=== PATIENT | male | born 1990 | race Caucasian/White ===

== ENCOUNTER 2016-11-24 13:16 | Emergency (ER) | payer SELFPAY ==
[~2016-11-24] VITALS: Ht 167.6 cm; Wt 100.0 kg
[~2016-11-24 13:16] MED LIST: HYDR-3533 PO; IBUP-238 PO; Z.0.NO CURRENT MEDS
[2016-11-24 13:18] VITALS: BP 138/73; PULSE 68; RESP 20; TEMP 98.1; O2SAT 100
--- NOTE | 2016-11-24 13:51 | PD ---
HPI . left arm pain since 7 am Chief Complaint: Pain: Acute or Chronic Time Seen by Provider: 13:50 Travel History International Travel<30 days: No Contact w/Intl Traveler<30days: No Traveled to known affect area: No History of Present Illness HPI 26 yr old male here with c/o left arm pain at the elbow since 7 am. He does not recall any ROSIE. He says the pain is shooting and hurts with certain movements. He has no other complaints. Rates pain as moderate. He has not tried OTC formulations for relief. He denies any chest pain, nausea, vomiting, diaphoresis or SOB. ON LICENSE OF [facility] Social History Alcohol Use: Yes Tobacco Use: Yes Allergies-Medications (Allergen,Severity, Reaction): Coded Allergies: No Known Allergies (Unverified , 11/24/16) Reported Meds & Prescriptions Reported Meds & Active Scripts Active No Active Prescriptions or Reported Medications Review of Systems General / Constitutional: No: Fever Eyes: No: Visual changes HENT: No: Headaches Cardiovascular: No: Chest Pain or Discomfort Respiratory: No: Shortness of Breath Gastrointestinal: No: Abdominal Pain Genitourinary: No: Dysuria Musculoskeletal: Positive: Pain (left arm pain ) Skin: No Rash Neurologic: No: Weakness Psychiatric: No: Depression Endocrine: No: Polydipsia Hematologic/Lymphatic: No: Easy Bruising Physical Exam Narrative GENERAL: AAOx3, NAD, ambulatory SKIN: Warm and dry. HEAD: Atraumatic. Normocephalic. EYES: Pupils equal and round. No scleral icterus. No injection or drainage. ENT: No nasal bleeding or discharge. Mucous membranes pink and moist. NECK: Trachea midline. No JVD. CARDIOVASCULAR: Regular rate and rhythm. RESPIRATORY: No accessory muscle use. Clear to auscultation. Breath sounds equal bilaterally. GASTROINTESTINAL: Abdomen soft, non-tender, nondistended. Hepatic and splenic margins not palpable. MUSCULOSKELETAL: Extremities without clubbing, cyanosis, or edema. No obvious deformities. FULL ROM B/L arms. B/L elbow flexion and extension normal. NEUROLOGICAL: Awake and alert. No obvious cranial nerve deficits. Motor grossly within normal limits. Five out of 5 muscle strength in the arms and legs. Normal speech. Core Cleaner strength normal .Negative Tinel's PSYCHIATRIC: Appropriate mood and affect; insight and judgment normal. Data Data Last Documented VS Vital Signs Date Time Temp Pulse Resp B/P (MAP) Pulse Ox O2 Delivery O2 Flow Rate FiO2 11/24/16 13:18 98.1 68 20 138/73 (94) 100 Room Air MDM Medical Decision Making Medical Screen Exam Complete: Yes Emergency Medical Condition: No Medical Record Reviewed: Yes Differential Diagnosis bursitis, CTS, less likely fracture Narrative Course A medical screening exam was performed: At the time of evaluation the presenting medical condition was determined not to be of an emergent nature. The patient was given the option of receiving additional care, but declined. Patient was given options for additional community resources from which to obtain care. The Patient Has Been advised to seek medical attention for their presenting complaint. The patient has been advised to return to the ER at any time if an emergent condition develops. DIscussed with patient likely bursitis. Recommend OTC ibuprofen. Diagnosis Primary Impression: Encounter for medical screening examination Scripts No Active Prescriptions or Reported Meds Condition: Stable Maribell Driscoll Nov 24, 2016 13:50
== END 2016-11-24 14:04 | disposition left against medical advice (07) ==
LOC: NEPK 13:16
DX: M79.602 Pain in left arm (principal)
CPT/HCPCS: 99281